=== PATIENT | male | born 1995 | race Caucasian/White ===

== ENCOUNTER 2019-02-04 15:55 | Emergency (ER) | payer SELFPAY ==
[2019-02-04 16:02] VITALS: BP 130/86
--- NOTE | 2019-02-04 16:19 | EDPHY ---
H & P Time Seen by Provider: 02/04/19 15:58 HPI/ROS: HPI Mental health problems. Suicidal thoughts. 23-year-old male on foot. This patient is from [place]. He recently came to [place]. He is a father who lives in [place]. He stayed with his father last night. He found out that his brother committed suicide around Thanksgi time by hanging himself in the [place]. They did not find his brother's body until November according to the patient. He reports because of this and because he currently does not have any place to stay and he is feeling depressed because of these things. He denies being suicidal. He does have a history of schizophrenia. He reports that he has been taking his psychiatric medications. He reports that he is hearing voices intermittently. He states that he smoked some marijuana this morning but otherwise denies drugs or alcohol. He has not had any type of mental health care in [facility]. ROS: Constitutional: No fever, no chills. No weakness. Eyes: No discharge. No changes in vision. ENT: No sore throat. No nasal congestion or rhinorrhea. Respiratory: No cough. No shortness of breath. Cardiac: No chest pain, no palpitations. Gastrointestinal: No abdominal pain, no vomiting, no diarrhea. Genitourinary: No hematuria. No dysuria or increased frequency with urination. Musculoskeletal: No back pain. No neck pain. No myalgias or arthralgias. Skin: No rashes. Neurological: No headache. No focal weakness or altered sensation. Past medical history: Bipolar, schizophrenia, multiple personality disorder. Social history: Currently homeless. As above. Denies alcohol. Of the marijuana no IV drugs or street drugs. Physical Exam: General Appearance: Alert, he is not in distress, he was mildly anxious. This patient is responding to questions appropriately and in full sentences. This patient appears well-hydrated and well-nourished. Head: Normocephalic atraumatic. Eyes: Pupils equal and round no pallor or injection. No lid edema, erythema or injection. Respiratory: There are no retractions, lungs are clear to auscultation with good air movement bilaterally. Cardiovascular: Regular rate and rhythm. No murmur. Gastrointestinal: Abdomen is soft and nontender, no masses, bowel sounds normal. No focal tenderness at McBurney's point. No Chanel sign. Neurological: Motor sensory function is grossly intact. Cranial nerves are normal. Gait is normal. Skin: Warm and dry, no rashes. Multiple tattoos. Musculoskeletal: Neck is supple and nontender. Extremities are symmetrical. All joints range without pain or impingement. Psychiatric: No agitation. No depression. Database: EKG: Imaging: Procedures: Emergency department course: Triage vital signs reviewed and are normal. The patient is currently not on a hold. He is here voluntarily. [facility] has been notified and will evaluate him. 5:15 p.m., the patient walked out of the emergency department prior to being evaluated by [facility]. Differential Diagnosis: The differential diagnosis on this patient includes but is not limited to situational depression, major depression, schizophrenia, suicidal ideation. This represents a partial list of diagnoses considered. These considerations are based on history, physical exam, past history, reassessment and diagnostic testing. Smoking Status: Current every day smoker Constitutional: Initial Vital Signs Temperature (C) 36.7 C 02/04/19 15:56 Heart Rate 80 02/04/19 15:56 Respiratory Rate 18 02/04/19 15:56 Blood Pressure 130/86 H 02/04/19 15:56 O2 Sat (%) 96 02/04/19 15:56 O2 Delivery Mode Room Air Allergies/Adverse Reactions: No Known Allergies Allergy (Unverified 02/04/19 16:02) Home Medications: Medication Instructions Recorded NK [No Known Home Meds] 02/04/19 Medical Decision Making - Data Points Laboratory Results: Laboratory Results 02/04/19 16:15 02/04/19 16:15 02/04/19 02/04/19 02/04/19 16:15 16:15 16:15 WBC 10.00 10^3/uL H 10^3/uL (3.80-9.50) RBC 4.76 10^6/uL 10^6/uL (4.40-6.38) Hgb 14.6 g/dL g/dL (13.7-17.5) Hct 44.3 % % (40.0-51.0) MCV 93.1 fL fL (81.5-99.8) MCH 30.7 pg pg (27.9-34.1) MCHC 33.0 g/dL g/dL (32.4-36.7) RDW 13.3 % % (11.5-15.2) Plt Count 243 10^3/uL 10^3/uL (150-400) MPV 10.2 fL fL (8.7-11.7) Neut % (Auto) 63.2 % % (39.3-74.2) Lymph % (Auto) 25.9 % % (15.0-45.0) [place] % (Auto) 7.2 % % (4.5-13.0) Eos % (Auto) 3.1 % % (0.6-7.6) Baso % (Auto) 0.3 % % (0.3-1.7) Nucleat RBC Rel Count 0.0 % % (0.0-0.2) Absolute Neuts (auto) 6.32 10^3/uL 10^3/uL (1.70-6.50) Absolute Lymphs (auto) 2.59 10^3/uL 10^3/uL (1.00-3.00) Absolute Monos (auto) 0.72 10^3/uL 10^3/uL (0.30-0.80) Absolute Eos (auto) 0.31 10^3/uL 10^3/uL (0.03-0.40) Absolute Basos (auto) 0.03 10^3/uL 10^3/uL (0.02-0.10) Absolute Nucleated RBC 0.00 10^3/uL 10^3/uL (0-0.01) Immature Gran % 0.3 % % (0.0-1.1) Immature Gran # 0.03 10^3/uL 10^3/uL (0.00-0.10) Sodium 140 mEq/L mEq/L (135-145) Potassium 4.3 mEq/L mEq/L (3.5-5.2) Chloride 105 mEq/L mEq/L (97-110) Carbon Dioxide 27 mEq/l mEq/l (22-31) Anion Gap 8 mEq/L mEq/L (6-14) BUN 10 mg/dL mg/dL (7-23) Creatinine 1.0 mg/dL mg/dL (0.7-1.3) Estimated GFR > 60 Glucose 79 mg/dL mg/dL (70-100) Calcium 9.4 mg/dL mg/dL (8.5-10.4) Urine Opiates Screen NEGATIVE (NEGATIVE) Urine Barbiturates NEGATIVE (NEGATIVE) Ur Phencyclidine Scrn NEGATIVE (NEGATIVE) Ur Amphetamine Screen NEGATIVE (NEGATIVE) U Benzodiazepines Scrn NEGATIVE (NEGATIVE) Urine Cocaine Screen NEGATIVE (NEGATIVE) U Marijuana (THC) Screen NON-NEGATIVE H (NEGATIVE) Ethyl Alcohol < 10 mg/dL mg/dL (0-10) Departure - Departure Disposition: Left Without Being Seen Clinical Impression: Situational depression
[2019-02-04 16:34] LABS: PLATELET COUNT 243 10^3/uL (150-400)
== END 2019-02-04 17:18 | disposition left against medical advice (07) ==
DX: F32.9 Major depressive disorder, single episode, unspecified (principal); F20.0 Paranoid schizophrenia; Z63.4 Disappearance and death of family member; Z59.0 Homelessness
CPT/HCPCS: 80305; G0480